=== PATIENT | male | born 1965 | race Caucasian/White ===

== ENCOUNTER 2017-11-20 20:25 | Emergency (ER) | payer BC ==
[~2017-11-20] VITALS: Ht 167.6 cm; Wt 75.0 kg
[2017-11-20 20:37] VITALS: BP 170/80; PULSE 116; RESP 20; TEMP 99.6; O2SAT 97
[2017-11-20] MEDS ORDERED: CLIN150C14 PO (21:02)
--- NOTE | 2017-11-20 21:11 | PD ---
HPI Chief Complaint: Oral / Dental Pain or Problem Time Seen by Provider: 20:42 Travel History International Travel<30 days: No Contact w/Intl Traveler<30days: No Traveled to known affect area: No History of Present Illness HPI 52-year-old male complains of right dentalgia involving the upper dentition. Duration has been a few days. No fever. No diplopia or pain with range of motion of the eyes. No fever. Pain is constant. Pain is moderately severe. Is worse palpation. PFSH Past Medical History Medical History: Denies Significant Hx Diminished Hearing: No Tetanus Vaccination: Unknown Influenza Vaccination: No Past Surgical History Surgical History: No Previous Surgery Social History Alcohol Use: Yes (occasionally) Tobacco Use: No Substance Use: No Allergies-Medications (Allergen,Severity, Reaction): Coded Allergies: Penicillins (Verified Allergy, Severe, 11/20/17) Reported Meds & Prescriptions Reported Meds & Active Scripts Active Clindamycin (Clindamycin HCl) 150 Mg Cap 450 Mg PO Q8HR 10 Days Review of Systems Except as stated in HPI: all other systems reviewed are Neg General / Constitutional: No: Fever Physical Exam Narrative GENERAL: 52 yo M, WNWD, mild distress 2/2 pain SKIN: Warm and dry. HEAD: Atraumatic. Normocephalic. EYES: Pupils equal and round. No scleral icterus. No injection or drainage. ENT: No nasal bleeding or discharge. Mucous membranes pink and moist. Lateral incisor fracture with tenderness. R first premolar fracture with tenderness. R anterior/maxillary face erythema/tenderness with swelling. NECK: Trachea midline. No JVD. CARDIOVASCULAR: Regular rate and rhythm. RESPIRATORY: No accessory muscle use. Clear to auscultation. Breath sounds equal bilaterally. GASTROINTESTINAL: Abdomen soft, non-tender, nondistended. Hepatic and splenic margins not palpable. MUSCULOSKELETAL: Extremities without clubbing, cyanosis, or edema. No obvious deformities. NEUROLOGICAL: Awake and alert. No obvious cranial nerve deficits. Motor grossly within normal limits. Five out of 5 muscle strength in the arms and legs. Normal speech. PSYCHIATRIC: Appropriate mood and affect; insight and judgment normal. Data Data Last Documented VS Vital Signs Date Time Temp Pulse Resp B/P (MAP) Pulse Ox O2 Delivery O2 Flow Rate FiO2 11/20/17 20:37 99.6 116 20 170/80 (110) 97 Orders Orders Ed Discharge Order (11/20/17 21:03) MDM Medical Decision Making Medical Screen Exam Complete: Yes Emergency Medical Condition: Yes Medical Record Reviewed: Yes Differential Diagnosis dental fracture, dental abscess, dental carry Narrative Course Patient is dental infection and will be treated with clindamycin. Pt plans to follow up with dentist next week. Diagnosis Primary Impression: Dental abscess Referrals: Dentist 2 days Med/Other Pt SpecificInfo: Prescription(s) given Scripts Clindamycin (Clindamycin) 150 Mg Cap 450 MG PO Q8HR for Infection for 10 Days, CAP 0 Refills Prov: Mark Madison MD 11/20/17 Disposition: 01 DISCHARGE HOME Condition: Stable Mark Madison MD November 20, 2017 21:03
== END 2017-11-20 21:26 | disposition home or self-care (01) ==
LOC: NED 20:25 → NEPE 21:26
DX: K04.7 Periapical abscess without sinus (principal); Z88.0 Allergy status to penicillin
CPT/HCPCS: 99283